=== PATIENT | male | born 1995 | race African-American/Black ===

== ENCOUNTER 2021-09-09 01:29 | Emergency (ER) | payer SELFPAY, BC ==
[2021-09-09 04:33] LABS: #Basophils 0.1 10x3/uL (0.0-0.2); #Monocytes 0.2 10x3/uL (0.0-1.1); #Neutrophils 8.7 10x3/uL (1.5-8.4); %Basophils 0.8 % (0.0-2.0); %Eosinophils 0.2 % (0.0-6.0); %Lymphocytes 12.2 % (18.0-47.0); %Monocytes 2.3 % (0.0-10.0); %Neutrophils 84.1 % (40.0-75.0); Hemoglobin 17.3 g/dL (13.5-17.5); Mean Corpuscular Hemoglobin 28.5 pg (27.0-33.0); Mean Corpuscular Volume 86.5 fl (81.2-95.1); Mean Platelet Volume 9.9 fl (7.4-10.4); Platelet Count 213 10x3/uL (150-450); RBC Distribution Width 11.5 % (11.5-14.5); Red Blood Cell (RBC) Count 6.06 10x6/uL (4.32-5.72); White Blood Cell (WBC) Count 10.3 10x3/uL (3.5-10.5)
[2021-09-09 05:00] LABS: ALT (SGPT) 25 U/L (8-55); AST (SGOT) 26 U/L (5-34); Acetaminophen Less than 6.0 mcg/mL (10.0-30.0); Alcohol 196 mg/dL (Less than 10); Alkaline Phosphatase 62 U/L (40-110); Anion Gap 19 mmol/L (10-20); BUN (Urea Nitrogen) 10 mg/dL (8.9-20.6); Bilirubin, Total 0.4 mg/dL (0.2-1.2); Calc. Creatinine Clearance 0 mL/min (70-130); Calcium 9.6 mg/dL (7.8-10.44); Carbon Dioxide 22 mmol/L (22-29); Chloride 104 mmol/L (98-107); Glucose 108 mg/dL (70-105); Potassium 3.6 mmol/L (3.5-5.1); Salicylate Less than 8.0 mg/dL (15.0-30.0); Sodium 141 mmol/L (136-145)
== END 2021-09-09 04:58 | disposition home or self-care (01) ==
LOC: CSHERS 01:29
DX: F10.129 Alcohol abuse with intoxication, unspecified (principal); Y90.2 Blood alcohol level of 40-59 mg/100 ml
CPT/HCPCS: 70450; 80053; 80307; 85025